=== PATIENT | female | born 1980 | race Caucasian/White ===

== ENCOUNTER 2016-11-22 05:20 | Day surgery (SDC) | payer BC ==
[~2016-11-22] VITALS: Ht 170.2 cm; Wt 54.0 kg
[~2016-11-22 05:20] MED LIST: LINZESS145 MCG PO
[2016-11-22 06:55] VITALS: BP 93/54
[2016-11-22 10:19] VITALS: BP 92/50
[2016-11-22 16:00] VITALS: BP 101/59
[2016-11-22 19:49] VITALS: BP 106/56
[2016-11-23 00:14] VITALS: BP 80/43
[2016-11-23 03:49] VITALS: BP 81/45
[2016-11-23 07:05] LABS: EOSINOPHIL (%) 0.3 % (0-5); HEMATOCRIT 34.1 % (36.0-46.0); IMMATURE GRANULOCYTE (%) 0.4 % (0.0-0.7); IMMATURE GRANULOCYTE COUNT 0.1 K/uL; INSTRUMENT ABS NEUTROPHIL CT 10.3 K/uL; LYMPHOCYTE COUNT 2.3 K/uL (1.0-2.8); MCH 30.8 PG (29.0-34.0); MCHC 33.4 G/DL (30.0-36.0); MCV 92.2 FL (83-99); MONOCYTE (%) 6.8 % (3-12); MONOCYTE COUNT 0.9 K/uL (0-0.8); NEUTROPHIL (%) 75.3 % (45-76); NEUTROPHIL COUNT 10.3 K/uL (1.8-6.4); PLATELET COUNT 170 K/uL (156-360); RBC DIS.WIDTH-CV 11.6 % (11.8-14.6); RBC DIS.WIDTH-SD 39.1 % (39-53)
[2016-11-23 07:15] VITALS: BP 93/52
[2016-11-23 07:34] LABS: ANION GAP 6 MEQ/L (2-14); CHLORIDE 106 MEQ/L (99-109); GFR ESTIMATE (CALCULATED) > 59 mL/min/; GLUCOSE 106 mg/dL (70-99); POTASSIUM 3.8 MEQ/L (3.7-5.4); SAMPLE HEMOLYSIS CHECK 0; SAMPLE ICTERIC CHECK 0; SAMPLE LIPEMIA CHECK 0; SODIUM 138 MEQ/L (136-147); UREA NITROGEN (BUN) 6 mg/dL (9-23)
[2016-11-23 07:36] LABS: WHITE BLOOD COUNT 13.7 K/uL (4.1-10.2)
== END 2016-11-23 11:47 | disposition home or self-care (01) ==
LOC: SDC 05:20 → 2SOUTH 08:45 → 2EASTP 08:45 → 2SOUTH 08:45 → 2EASTP 10:11 → SDC 10:20 → 2EASTP 11-23 11:47
PROVIDERS: Obstetrics & Gynecology Gynecology
DX: D06.9 Carcinoma in situ of cervix, unspecified (principal); N80.0 Endometriosis of uterus; N92.0 Excessive and frequent menstruation with regular cycle; N94.6 Dysmenorrhea, unspecified; F17.200 Nicotine dependence, unspecified, uncomplicated; Z82.49 Family history of ischemic heart disease and other diseases of the circulatory system; Z82.3 Family history of stroke; Z80.0 Family history of malignant neoplasm of digestive organs
CPT/HCPCS: 80048; 85025; 87086; 88307; G0378; J0131; J0690; J1100; J1170; J1885; J2175; J2250; J2270; J2405; J3010; J7120